=== PATIENT | female | born 1995 | race Caucasian/White ===

== ENCOUNTER → 2017-01-25 | Outpatient (CLI) | payer OTHER ==
[2016-11-06 08:30] VITALS: BP 110/64
[~2017-01-25] MED LIST: DOXY1TAB3 PO; HYDR25TA PO; NITR100C62 PO; PHOS118S17 PO; PRED50TA PO; PROM12.553 RC
[2017-01-25 11:05] LABS: EOS % 1 % (0-3); HEMATOCRIT 35.1 % (36.0-47.0); HEMOGLOBIN 12.1 g/dL (12.0-15.5); LYMPH % 16 % (24-48); MEAN CORPUSCULAR HEMOGLOBIN 35 pg (25-35); MEAN CORPUSCULAR HGB CONC 35 g/dL (31-37); MEAN CORPUSCULAR VOLUME 100 fL (79-100); MONO % 5 % (0-9); NEUT % 79 % (31-73); PLATELET COUNT 186 x10^3/uL (140-400); RED CELL DISTRIBUTION WIDTH 13.1 % (11.5-14.5); WHITE BLOOD COUNT 5.9 x10^3/uL (4.0-11.0)
[2017-01-25 11:06] LABS: BASO % 0 % (0-3)
== END | disposition home or self-care (01) ==
LOC: LAB 09:38
PROVIDERS: ATTEND Obstetrics & Gynecology
DX: Z32.01 Encounter for pregnancy test, result positive (principal)
CPT/HCPCS: 36415; 82950; 85027; 86593; 86703; 86762; 86850; 86900; 86901; 87340; 87341

== ENCOUNTER 2017-05-18 18:47 | Inpatient (IN) | payer OTHER ==
[~2017-05-18] VITALS: Ht 157.5 cm; Wt 81.6 kg
[2017-05-18] MEDS ORDERED: IBUPROFEN 600 MG TABLET. PO PRN (19:45)
[2017-05-18] MEDS ORDERED: fentaNYL PF VIAL 100 MCG/2 ML VIAL IV PRN (19:45)
[2017-05-18] MEDS ORDERED: OXYTOCIN 30 UNIT/500 ML PREMIX 500 ML IV PRN (19:45)
[2017-05-18] MEDS ORDERED: ACETAMINOPHEN 325 MG TABLET. PO PRN (19:45)
[2017-05-18] MEDS ORDERED: 0.9 % SODIUM CHLORIDE 10 ML DISP.SYRIN. IV PRN (19:45)
[2017-05-18] MEDS ORDERED: TERBUTALINE 1 MG/ML VIAL. SQ PRN (19:45)
[2017-05-18] MEDS ORDERED: DINOPROSTONE 10 MG SUPP.VAG VG ONE (19:45)
[2017-05-18] MEDS ORDERED: LIDOCAINE 1% PF 30 ML VIAL. INJ PRN (19:45)
[2017-05-18] MEDS ORDERED: diphenhydrAMINE HCL 25 MG CAPSULE PO PRN (19:45)
[2017-05-18 20:25] LABS: HEMATOCRIT 35.4 % (36.0-47.0); HEMOGLOBIN 12.4 g/dL (12.0-15.5); RED BLOOD COUNT 3.49 x10^6/uL (3.50-5.40); RED CELL DISTRIBUTION WIDTH 11.8 % (11.5-14.5); WHITE BLOOD COUNT 6.7 x10^3/uL (4.0-11.0)
[2017-05-18 20:27] LABS: BILIRUBIN,URINE NEGATIVE (NEG); GLUCOSE,URINE NEGATIVE (NEG); NITRITE,URINE NEGATIVE (NEG); PH,URINE 6.5; PROTEIN,URINE NEGATIVE (NEG-TRACE); UROBILINOGEN,URINE 0.2 mg/dL (0.2 mg/dL)
[2017-05-18 20:32] LABS: BACTERIA,URINE MODERATE /HPF (0-FEW); RBC,URINE 0 /HPF (0-2); SQUAMOUS EPITHELIAL CELL,UR MOD /LPF
[2017-05-18 23:43] VITALS: BP 124/83
[2017-05-19] MEDS: IV RINGERS,LACTATED 1000ML 1,000 ML IV SCH ×3 (08:58→20:44)
[2017-05-19] MEDS ORDERED: OXYTOCIN 30 UNIT/500 ML PREMIX 500 ML IV ONE (09:00)
--- NOTE | 2017-05-19 09:25 | PDOC1 ---
OB - History Hx of Present Care: Good Care Ultrasounds: Normal mid trimester US Obstetrical Complications: None Medical Complications: None Past Family/Social History * Past Medical, Surgical, Family and Obstetric Histories reviewed from chart. Rubella: Immune RPR/VDRL: Negative GBS Status: Negative HBsAG: Negative OB - Chief Complaint & HPI Date of Admission: Date of Admission: May 18, 2017 at 18:47 Chief Complaint/History : 1 Para: 0 EGA: 39 Reason for admission: induction of labor Indication for induction: post dates Admission Nurse Assessment Rev: Yes Problems: OB - Admission Exam Physical Exam Vitals: VS - Last 72 Hours, by Label Date Time Temp Pulse Resp B/P (MAP) Pulse Ox O2 Delivery O2 Flow Rate FiO2 05/18/17 23:43 98.6 82 18 124/83 (97) Room Air 98.6 HEENT: Normal Heart: Regular Rate Lungs: Clear Abdomen: Gravid, Non tender, Soft Extremities: Edema Reflexes: Normal Cervical Dilatation: 1cm Effacement: 50% Station: -3 Membranes: Intact Heart Rate: Normal Accelerations: Accelerations Present Decelerations: No decelerations Contractions on Admission: None Text A: 40 wks IUP IOL secondary to post dates P: Admit for cervidil induction, then pitocin in am. PAMELA FARRIS Jr, MD May 19, 2017 09:25
[2017-05-19] MEDS: ONDANSETRON PF 4 MG/2 ML VIAL. IV PRN ×2 (13:34→19:32)
[2017-05-19] MEDS ORDERED: LIDOCAINE 2% PF Vial for OR 5 ML VIAL. ONE (16:56)
[2017-05-19] MEDS ORDERED: L&D EPIDURAL CASSETTE 100 ML EP ONE (16:56)
[2017-05-19] MEDS ORDERED: LIDOCAINE 2% 20 ML VIAL. IJ ONE (17:30)
[2017-05-19] MEDS ORDERED: fentaNYL PF VIAL 100 MCG/2 ML VIAL EPI ONE (17:30)
[2017-05-19] MEDS ORDERED: IV RINGERS,LACTATED 1000ML 1,000 ML IV SCH (17:30)
[2017-05-19] MEDS ORDERED: NALOXONE 0.4 MG/ML VIAL. IV PRN (17:30)
[2017-05-19] MEDS ORDERED: L&D EPIDURAL CASSETTE 100 ML EP PRN (17:30)
[2017-05-19] MEDS ORDERED: fentaNYL PF VIAL 100 MCG/2 ML VIAL EPI PRN (17:30)
--- NOTE | 2017-05-20 00:24 | PDOC ---
VAGINAL DELIVERY DATE DATE: 05/20/17 TIME: 00:23 : 1 Para: 1 EGA: 40 VAGINAL DELIVERY: VTX VACCUM ASSISTED: No PLACENTA: Spontaneous 9/9 SEX: Male WEIGHT Weight [3200 gm ] Nuchal Cord: No Amniotic Fluid: Clear PAIN: Epidural EPISIOTOMY: No EXTENSION: Yes (2nd degree midline laceration) REPAIRED WITH 2-0 vicryl EBL 400 ml COMPLICATIONS none CONDITION pt. stable Signs of Intrauterine Infectio: None Shoulder Dystocia: No Problems: PAMELA FARRIS Jr, MD May 20, 2017 00:24
[2017-05-20] MEDS ORDERED: ZOLPIDEM 5 MG TABLET. PO PRN (00:30)
[2017-05-20] MEDS ORDERED: SIMETHICONE 80 MG TAB.CHEW PO PRN (00:30)
[2017-05-20] MEDS ORDERED: ACETAMINOPHEN 325 MG TABLET. PO PRN (00:30)
[2017-05-20] MEDS ORDERED: diphenhydrAMINE HCL 25 MG CAPSULE PO PRN (00:30)
[2017-05-20] MEDS ORDERED: MAGNESIUM HYDROXIDE 2,400 MG/30 ML ORAL.SUSP. PO PRN (00:30)
[2017-05-20] MEDS ORDERED: oxyCODONE/APAP 5/325 1 TAB TABLET PO PRN (00:30)
[2017-05-20] MEDS ORDERED: OXYTOCIN 30 UNIT/500 ML PREMIX 500 ML IV PRN (00:30)
[2017-05-20] MEDS ORDERED: HYDROCORTISONE 1% TOPICAL OINTMENT 30GM TUBE. TP PRN (00:30)
[2017-05-20] MEDS ORDERED: MAG HYDROX/ALUMINUM HYD/SIMETH 30 ML ORAL.SUSP PO PRN (00:30)
[2017-05-20] MEDS ORDERED: MMR per PROTOCOL. MC PRN (00:30)
[2017-05-20] MEDS ORDERED: PHENYLEPH/MINERAL OIL/PETROLAT RECTAL OINTMENT 28GM TUBE. RC PRN (00:30)
[2017-05-20] MEDS ORDERED: BENZOCAINE 20% TOPICAL AEROSOL SPRAY 57GM CAN. TP PRN (00:30)
[2017-05-20] MEDS ORDERED: 0.9 % SODIUM CHLORIDE 10 ML DISP.SYRIN. IV PRN (00:30)
[2017-05-20 02:42] VITALS: BP 123/61
[2017-05-20 10:42] VITALS: BP 131/89
[2017-05-20 17:19] VITALS: BP 113/49
[2017-05-20 21:08] VITALS: BP 120/69
[2017-05-20] MEDS: IBUPROFEN 800 MG TABLET. PO PRN (21:21)
[2017-05-20] MEDS: DOCUSATE SODIUM 100 MG CAPSULE. PO PRN (21:21)
[2017-05-21 05:46] VITALS: BP 124/77
[2017-05-21 05:50] LABS: BASO % 0 % (0-3); EOS % 1 % (0-3); HEMATOCRIT 24.8 % (36.0-47.0); HEMOGLOBIN 8.8 g/dL (12.0-15.5); LYMPH # 2.2 x10^3/uL (1.0-4.8); LYMPH % 27 % (24-48); MEAN CORPUSCULAR HEMOGLOBIN 36 pg (25-35); MEAN CORPUSCULAR HGB CONC 36 g/dL (31-37); MEAN CORPUSCULAR VOLUME 101 fL (79-100); MONO % 8 % (0-9); NEUT % 65 % (31-73); PLATELET COUNT 124 x10^3/uL (140-400); RED BLOOD COUNT 2.45 x10^6/uL (3.50-5.40); RED CELL DISTRIBUTION WIDTH 12.1 % (11.5-14.5); WHITE BLOOD COUNT 8.1 x10^3/uL (4.0-11.0)
[2017-05-21] MEDS: FERROUS SULFATE 325 MG TABLET. PO SCH ×2 (08:18→17:24)
[2017-05-21] MEDS: IBUPROFEN 800 MG TABLET. PO PRN ×2 (08:20→19:54)
[2017-05-21 11:03] VITALS: BP 108/56
[2017-05-21 15:00] VITALS: BP 117/66
--- NOTE | 2017-05-21 15:41 | PDOC ---
OB Progress Note Date of Service 05/21/17 Time of Evaluation 1540 Notes Pt. feeling well. Pain controlled. Lochia minimal. Breast feeding. Lab Laboratory Tests Test 05/21/17 05:36 White Blood Count 8.1 x10^3/uL (4.0-11.0) Red Blood Count 2.45 x10^6/uL (3.50-5.40) Hemoglobin 8.8 g/dL (12.0-15.5) Hematocrit 24.8 % (36.0-47.0) Mean Corpuscular Volume 101 fL (79-100) Mean Corpuscular Hemoglobin 36 pg (25-35) Mean Corpuscular Hemoglobin Concent 36 g/dL (31-37) Red Cell Distribution Width 12.1 % (11.5-14.5) Platelet Count 124 x10^3/uL (140-400) Neutrophils (%) (Auto) 65 % (31-73) Lymphocytes (%) (Auto) 27 % (24-48) Monocytes (%) (Auto) 8 % (0-9) Eosinophils (%) (Auto) 1 % (0-3) Basophils (%) (Auto) 0 % (0-3) Neutrophils # (Auto) 5.3 x10^3uL (1.8-7.7) Lymphocytes # (Auto) 2.2 x10^3/uL (1.0-4.8) Monocytes # (Auto) 0.6 x10^3/uL (0.0-1.1) Eosinophils # (Auto) 0.0 x10^3/uL (0.0-0.7) Basophils # (Auto) 0.0 x10^3/uL (0.0-0.2) Laboratory Tests Test 05/21/17 05:36 White Blood Count 8.1 x10^3/uL (4.0-11.0) Red Blood Count 2.45 x10^6/uL (3.50-5.40) Hemoglobin 8.8 g/dL (12.0-15.5) Hematocrit 24.8 % (36.0-47.0) Mean Corpuscular Volume 101 fL (79-100) Mean Corpuscular Hemoglobin 36 pg (25-35) Mean Corpuscular Hemoglobin Concent 36 g/dL (31-37) Red Cell Distribution Width 12.1 % (11.5-14.5) Platelet Count 124 x10^3/uL (140-400) Neutrophils (%) (Auto) 65 % (31-73) Lymphocytes (%) (Auto) 27 % (24-48) Monocytes (%) (Auto) 8 % (0-9) Eosinophils (%) (Auto) 1 % (0-3) Basophils (%) (Auto) 0 % (0-3) Neutrophils # (Auto) 5.3 x10^3uL (1.8-7.7) Lymphocytes # (Auto) 2.2 x10^3/uL (1.0-4.8) Monocytes # (Auto) 0.6 x10^3/uL (0.0-1.1) Eosinophils # (Auto) 0.0 x10^3/uL (0.0-0.7) Basophils # (Auto) 0.0 x10^3/uL (0.0-0.2) Medications Current Medications Sodium Chloride (Normal Saline Flush) 3 ml QSHIFT PRN IV AFTER MEDS AND BLOOD DRAWS; Start 05/18/17 at 19:45; Stop 05/20/17 at 07:35; Status DC Ringer's Solution 1,000 ml @ 125 mls/hr Q8H IV Last administered on 05/19/17 20:44; Start 05/18/17 at 19:42; Stop 05/20/17 at 07:35; Status DC Fentanyl Citrate (Fentanyl 2ml Vial) 100 mcg PRN Q10MIN PRN IV Labor pain Last administered on 05/19/17 15:28; Start 05/18/17 at 19:45; Stop 05/20/17 at 07:35 ; Status DC Acetaminophen (Tylenol) 650 mg PRN Q6HRS PRN PO MILD PAIN / TEMP Last administered on 05/20/17 17:20; Start 05/18/17 at 19:45 Ondansetron HCl (Zofran) 4 mg PRN Q4HRS PRN IV NAUSEA/VOMITING Last administered on 05/19/17 19:32; Start 05/18/17 at 19:45; Stop 05/20/17 at 07:35 ; Status DC Terbutaline Sulfate (Brethine) 0.25 mg 1X PRN PRN SQ SEE COMMENTS; Start at 19:45; Stop 05/19/17 at 19:44; Status DC Lidocaine HCl 30 ml 1X PRN PRN INJ SEE COMMENTS; Start 05/18/17 at 19:45; Stop 05/20/17 at 07:35; Status DC Oxytocin/Sodium Chloride 500 ml @ 0 mls/hr CONT PRN PRN IV Post delivery bleeding Last administered on 05/20/17 01:54; Start 05/18/17 at 19:45; Stop 05/20 at 07:35; Status DC Ibuprofen (Motrin) 600 mg PRN Q6HRS PRN PO PAIN Last administered on 05/20/17 01:54; Start 05/18/17 at 19:45 Dinoprostone (Cervidil) 10 mg 1X ONCE VG Last administered on 05/18/17 20:41 ; Start 05/18/17 at 19:45; Stop 05/18/17 at 19:51; Status DC Diphenhydramine HCl (Benadryl) 50 mg PRN QHS PRN PO INSOMNIA Last administered on 05/19/17 02:29; Start 05/18/17 at 19:45 Oxytocin/Sodium Chloride 500 ml @ 0 mls/hr 1X ONCE IV Last administered on 08:59; Start 05/19/17 at 09:00; Stop 05/20/17 at 07:35; Status DC Ropivacaine/ Fentanyl/NS 100 ml @ As Directed STK-MED ONCE EP ; Start 05/19/17 at 16:56; Stop 05/20/17 at 07:35; Status DC Lidocaine HCl (Lidocaine Pf 2% Vial) 5 ml STK-MED ONCE .ROUTE ; Start 05/19/17 at 16:56; Stop 05/20/17 at 07:35; Status DC Ringer's Solution 1,000 ml @ 1,000 mls/hr Q1H IV ; Start 05/19/17 at 17:30; Stop 05/19/17 at 18:29; Status DC Naloxone HCl (Narcan) 0.04 mg PRN Q1MIN PRN IV SEE COMMENTS; Start 05/19/17 at 17:30; Stop 05/20/17 at 07:35; Status DC Fentanyl Citrate (Fentanyl 2ml Vial) 100 mcg PRN 1X PRN EPI FOR ANESTHESIA; Start 05/19/17 at 17:30; Stop 05/20/17 at 07:35; Status DC Ropivacaine/ Fentanyl/NS 100 ml @ 12 mls/hr CONT PRN EP PAIN Last administered on 05/19/17 18:16; Start 05/19/17 at 17:30; Stop 05/20/17 at 07:35 ; Status DC Fentanyl Citrate (Fentanyl 2ml Vial) 100 mcg 1X ONCE EPI Last administered on 05/19/17 18:18; Start 05/19/17 at 17:30; Stop 05/20/17 at 07:35; Status DC Lidocaine HCl 2 ml 1X ONCE IJ ; Start 05/19/17 at 17:30; Stop 05/20/17 at 07:35 ; Status DC Sodium Chloride (Normal Saline Flush) 10 ml QSHIFT PRN IV AFTER MEDS AND BLOOD DRAWS; Start 05/20/17 at 00:30; Stop 05/20/17 at 07:35; Status DC Oxytocin/Sodium Chloride 500 ml @ 62.5 mls/hr CONT PRN IV SEE I/O RECORD; Start 05/20/17 at 00:30; Stop 05/20/17 at 07:35; Status DC Acetaminophen (Tylenol) 650 mg PRN Q6HRS PRN PO MILD PAIN / TEMP; Start at 00:30 Ibuprofen (Motrin) 800 mg PRN Q8HRS PRN PO INFLAMMATION/PAIN PREVENTION Last administered on 05/21/17 08:20; Start 05/20/17 at 00:30 Docusate Sodium (Colace) 100 mg PRN BID PRN PO CONSTIPATION Last administered on 05/20/17 21:21; Start 05/20/17 at 00:30 Magnesium Hydroxide (Milk Of Magnesia) 2,400 mg PRN DAILY PRN PO CONSTIPATION; Start 05/20/17 at 00:30 Al Hydroxide/Mg Hydroxide (Mylanta Plus Xs) 30 ml PRN Q4HRS PRN PO HEARTBURN / GAS; Start 05/20/17 at 00:30 Simethicone (Gas-X) 80 mg PRN AFTMEALHC PRN PO GAS / BLOATING; Start 05/20/17 at 00:30 Diphenhydramine HCl (Benadryl) 25 mg PRN Q6HRS PRN PO ITCHING; Start 05/20/17 at 00:30 Benzocaine (Americaine) 1 spray PRN QID PRN TP TOPICAL PAIN Last administered on 05/20/17 01:54; Start 05/20/17 at 00:30 Phenyleph/Shark Oil/Min Oil/Petrol (Preparation H) 1 zahraa PRN QID PRN RC RECTAL PAIN; Start 05/20/17 at 00:30 Hydrocortisone (Cortaid) 1 zahraa PRN QID PRN TP PERINEAL PAIN; Start 05/20/17 at 00:30 Ferrous Sulfate (Feosol) 325 mg BIDWMEALS PO Last administered on 05/21/17 08: 18; Start 05/21/17 at 08:00 Zolpidem Tartrate (Ambien) 5 mg PRN QHS PRN PO INSOMNIA, MAY REPEAT X1; Start 05/20/17 at 00:30 Info (Do NOT chart on this placeholder) 1 ea 1X PRN PRN MC SEE COMMENTS; Start 05/20/17 at 00:30; Stop 05/20/17 at 07:35; Status DC Info (Do NOT chart on this placeholder) 1 ea 1X PRN PRN MC SEE COMMENTS; Start 05/20/17 at 00:30; Stop 05/20/17 at 07:35; Status DC Oxycodone/ Acetaminophen (Percocet 5/325) 2 tab PRN Q4HRS PRN PO MODERATE PAIN , SEVERE PAIN; Start 05/20/17 at 00:30 Active Scripts Active Phenergan (Promethazine HCl) 12.5 Mg Supp.rect 12.5 Mg RC Q12HR PRN Karyn Carpenter 10-10 Mg Tablet (Doxylamine/Pyridoxine Hcl) 1 Each Tablet.dr 1 Each PO BID PRN Macrobid 100 Mg Capsule (Nitrofurantoin Monohyd/M-Cryst) 100 Mg Capsule 1 Cap PO BID Emetrol Oral Solution (Phosp Acid/Dextrose/Fructose) 118 Ml Solution 30 Ml PO QID PRN 5 Days Prednisone 50 Mg Tablet 1 Tab PO DAILY Hydroxyzine Hcl 25 Mg Tablet 1 Tab PO TID Exam Abd: soft, non tender, fundus firm Assessment PPD#1 s/p Plan of Care: Continue current Tx, Mgmt PAMELA FARRIS Jr, MD May 21, 2017 15:41
[2017-05-21 20:40] VITALS: BP 129/75
[2017-05-21 22:11] LABS: RPR REFLEX Non Reactive (Non Reactive)
[2017-05-22 06:28] VITALS: BP 111/61
--- NOTE | 2017-05-22 10:02 | PDOC ---
OB Progress Note Date of Service 05/22/17 Time of Evaluation 1000 Notes PT. feeling well. No complaints. Lab Laboratory Tests Test 05/21/17 05:36 White Blood Count 8.1 x10^3/uL (4.0-11.0) Red Blood Count 2.45 x10^6/uL (3.50-5.40) Hemoglobin 8.8 g/dL (12.0-15.5) Hematocrit 24.8 % (36.0-47.0) Mean Corpuscular Volume 101 fL (79-100) Mean Corpuscular Hemoglobin 36 pg (25-35) Mean Corpuscular Hemoglobin Concent 36 g/dL (31-37) Red Cell Distribution Width 12.1 % (11.5-14.5) Platelet Count 124 x10^3/uL (140-400) Neutrophils (%) (Auto) 65 % (31-73) Lymphocytes (%) (Auto) 27 % (24-48) Monocytes (%) (Auto) 8 % (0-9) Eosinophils (%) (Auto) 1 % (0-3) Basophils (%) (Auto) 0 % (0-3) Neutrophils # (Auto) 5.3 x10^3uL (1.8-7.7) Lymphocytes # (Auto) 2.2 x10^3/uL (1.0-4.8) Monocytes # (Auto) 0.6 x10^3/uL (0.0-1.1) Eosinophils # (Auto) 0.0 x10^3/uL (0.0-0.7) Basophils # (Auto) 0.0 x10^3/uL (0.0-0.2) Medications Current Medications Sodium Chloride (Normal Saline Flush) 3 ml QSHIFT PRN IV AFTER MEDS AND BLOOD DRAWS; Start 05/18/17 at 19:45; Stop 05/20/17 at 07:35; Status DC Ringer's Solution 1,000 ml @ 125 mls/hr Q8H IV Last administered on 05/19/17 20:44; Start 05/18/17 at 19:42; Stop 05/20/17 at 07:35; Status DC Fentanyl Citrate (Fentanyl 2ml Vial) 100 mcg PRN Q10MIN PRN IV Labor pain Last administered on 05/19/17 15:28; Start 05/18/17 at 19:45; Stop 05/20/17 at 07:35 ; Status DC Acetaminophen (Tylenol) 650 mg PRN Q6HRS PRN PO MILD PAIN / TEMP Last administered on 05/20/17 17:20; Start 05/18/17 at 19:45 Ondansetron HCl (Zofran) 4 mg PRN Q4HRS PRN IV NAUSEA/VOMITING Last administered on 05/19/17 19:32; Start 05/18/17 at 19:45; Stop 05/20/17 at 07:35 ; Status DC Terbutaline Sulfate (Brethine) 0.25 mg 1X PRN PRN SQ SEE COMMENTS; Start at 19:45; Stop 05/19/17 at 19:44; Status DC Lidocaine HCl 30 ml 1X PRN PRN INJ SEE COMMENTS; Start 05/18/17 at 19:45; Stop 05/20/17 at 07:35; Status DC Oxytocin/Sodium Chloride 500 ml @ 0 mls/hr CONT PRN PRN IV Post delivery bleeding Last administered on 05/20/17 01:54; Start 05/18/17 at 19:45; Stop 05/20 at 07:35; Status DC Ibuprofen (Motrin) 600 mg PRN Q6HRS PRN PO PAIN Last administered on 05/20/17 01:54; Start 05/18/17 at 19:45 Dinoprostone (Cervidil) 10 mg 1X ONCE VG Last administered on 05/18/17 20:41 ; Start 05/18/17 at 19:45; Stop 05/18/17 at 19:51; Status DC Diphenhydramine HCl (Benadryl) 50 mg PRN QHS PRN PO INSOMNIA Last administered on 05/19/17 02:29; Start 05/18/17 at 19:45 Oxytocin/Sodium Chloride 500 ml @ 0 mls/hr 1X ONCE IV Last administered on 08:59; Start 05/19/17 at 09:00; Stop 05/20/17 at 07:35; Status DC Ropivacaine/ Fentanyl/NS 100 ml @ As Directed STK-MED ONCE EP ; Start 05/19/17 at 16:56; Stop 05/20/17 at 07:35; Status DC Lidocaine HCl (Lidocaine Pf 2% Vial) 5 ml STK-MED ONCE .ROUTE ; Start 05/19/17 at 16:56; Stop 05/20/17 at 07:35; Status DC Ringer's Solution 1,000 ml @ 1,000 mls/hr Q1H IV ; Start 05/19/17 at 17:30; Stop 05/19/17 at 18:29; Status DC Naloxone HCl (Narcan) 0.04 mg PRN Q1MIN PRN IV SEE COMMENTS; Start 05/19/17 at 17:30; Stop 05/20/17 at 07:35; Status DC Fentanyl Citrate (Fentanyl 2ml Vial) 100 mcg PRN 1X PRN EPI FOR ANESTHESIA; Start 05/19/17 at 17:30; Stop 05/20/17 at 07:35; Status DC Ropivacaine/ Fentanyl/NS 100 ml @ 12 mls/hr CONT PRN EP PAIN Last administered on 05/19/17 18:16; Start 05/19/17 at 17:30; Stop 05/20/17 at 07:35 ; Status DC Fentanyl Citrate (Fentanyl 2ml Vial) 100 mcg 1X ONCE EPI Last administered on 05/19/17 18:18; Start 05/19/17 at 17:30; Stop 05/20/17 at 07:35; Status DC Lidocaine HCl 2 ml 1X ONCE IJ ; Start 05/19/17 at 17:30; Stop 05/20/17 at 07:35 ; Status DC Sodium Chloride (Normal Saline Flush) 10 ml QSHIFT PRN IV AFTER MEDS AND BLOOD DRAWS; Start 05/20/17 at 00:30; Stop 05/20/17 at 07:35; Status DC Oxytocin/Sodium Chloride 500 ml @ 62.5 mls/hr CONT PRN IV SEE I/O RECORD; Start 05/20/17 at 00:30; Stop 05/20/17 at 07:35; Status DC Acetaminophen (Tylenol) 650 mg PRN Q6HRS PRN PO MILD PAIN / TEMP; Start at 00:30 Ibuprofen (Motrin) 800 mg PRN Q8HRS PRN PO INFLAMMATION/PAIN PREVENTION Last administered on 05/21/17 19:54; Start 05/20/17 at 00:30 Docusate Sodium (Colace) 100 mg PRN BID PRN PO CONSTIPATION Last administered on 05/20/17 21:21; Start 05/20/17 at 00:30 Magnesium Hydroxide (Milk Of Magnesia) 2,400 mg PRN DAILY PRN PO CONSTIPATION; Start 05/20/17 at 00:30 Al Hydroxide/Mg Hydroxide (Mylanta Plus Xs) 30 ml PRN Q4HRS PRN PO HEARTBURN / GAS; Start 05/20/17 at 00:30 Simethicone (Gas-X) 80 mg PRN AFTMEALHC PRN PO GAS / BLOATING; Start 05/20/17 at 00:30 Diphenhydramine HCl (Benadryl) 25 mg PRN Q6HRS PRN PO ITCHING; Start 05/20/17 at 00:30 Benzocaine (Americaine) 1 spray PRN QID PRN TP TOPICAL PAIN Last administered on 05/20/17 01:54; Start 05/20/17 at 00:30 Phenyleph/Shark Oil/Min Oil/Petrol (Preparation H) 1 zahraa PRN QID PRN RC RECTAL PAIN; Start 05/20/17 at 00:30 Hydrocortisone (Cortaid) 1 zahraa PRN QID PRN TP PERINEAL PAIN; Start 05/20/17 at 00:30 Ferrous Sulfate (Feosol) 325 mg BIDWMEALS PO Last administered on 05/21/17 17: 24; Start 05/21/17 at 08:00 Zolpidem Tartrate (Ambien) 5 mg PRN QHS PRN PO INSOMNIA, MAY REPEAT X1; Start 05/20/17 at 00:30 Info (Do NOT chart on this placeholder) 1 ea 1X PRN PRN MC SEE COMMENTS; Start 05/20/17 at 00:30; Stop 05/20/17 at 07:35; Status DC Info (Do NOT chart on this placeholder) 1 ea 1X PRN PRN MC SEE COMMENTS; Start 05/20/17 at 00:30; Stop 05/20/17 at 07:35; Status DC Oxycodone/ Acetaminophen (Percocet 5/325) 2 tab PRN Q4HRS PRN PO MODERATE PAIN , SEVERE PAIN; Start 05/20/17 at 00:30 Active Scripts Active Phenergan (Promethazine HCl) 12.5 Mg Supp.rect 12.5 Mg RC Q12HR PRN Karyn Carpenter 10-10 Mg Tablet (Doxylamine/Pyridoxine Hcl) 1 Each Tablet.dr 1 Each PO BID PRN Macrobid 100 Mg Capsule (Nitrofurantoin Monohyd/M-Cryst) 100 Mg Capsule 1 Cap PO BID Emetrol Oral Solution (Phosp Acid/Dextrose/Fructose) 118 Ml Solution 30 Ml PO QID PRN 5 Days Prednisone 50 Mg Tablet 1 Tab PO DAILY Hydroxyzine Hcl 25 Mg Tablet 1 Tab PO TID Exam Abd: soft, non tender, fundus firm Assessment PPD#2 s/p Plan of Care: See new orders (D/c home.) PAMELA FARRIS Jr, MD May 22, 2017 10:02
--- NOTE | 2017-05-22 10:02 | DISCH ---
DISCHARGE INSTRUCTIONS Condition on Discharge Condition on Discharge: Stable Activity After Discharge Activity Instructions for Disc: Activity as tolerated Lifting Instructions after Dis: No heavy lifting Driving Instructions after Dis: Do not drive today Diet after Discharge Diet after Discharge: Regular Contacting the [facility] after DC Call your doctor for: Concerns you may have Follow-Up Follow up with: Dr. Miles in 6 weeks. PAMELA MILES Jr, MD May 22, 2017 10:02
[2017-05-22] MEDS ORDERED: IBUP-1060 PO (10:03)
[2017-05-22] MEDS: FERROUS SULFATE 325 MG TABLET. PO SCH (10:16)
[2017-05-22] MEDS: DOCUSATE SODIUM 100 MG CAPSULE. PO PRN (10:17)
[2017-05-22] MEDS: IBUPROFEN 800 MG TABLET. PO PRN (10:17)
== END 2017-05-22 12:00 | disposition home or self-care (01) | DRG 775 ==
LOC: 3 SO LND 18:47 → 3 NORTH 05-20 05:26
PROVIDERS: ADMIT Obstetrics & Gynecology; ATTEND Obstetrics & Gynecology
PROC: 0KQM0ZZ Repair Perineum Muscle, Open Approach (ICD-10-PCS; principal; 2017-05-20)
PROC: 10E0XZZ Delivery of Products of Conception, External Approach (ICD-10-PCS; 2017-05-20)
PROC: 3E0P7GC Introduction of Other Therapeutic Substance into Female Reproductive, Via Natural or Artificial Opening (ICD-10-PCS; 2017-05-20)
PROC: 3E033VJ Introduction of Other Hormone into Peripheral Vein, Percutaneous Approach (ICD-10-PCS; 2017-05-20)
PROC: 3E0S3CZ (ICD-10-PCS; 2017-05-20)
PROC: 00HU33Z Insertion of Infusion Device into Spinal Canal, Percutaneous Approach (ICD-10-PCS; 2017-05-20)
DX: O48.0 Post-term pregnancy (principal); O70.1 Second degree perineal laceration during delivery; Z37.0 Single live birth; Z3A.40 40 weeks gestation of pregnancy
CPT/HCPCS: 36415; 81001; 85027; 86593; 86850; 86900; 86901; 87086; J2405; J2590; J3010; J7120; Q0163

== ENCOUNTER → 2018-09-20 | Outpatient (CLI) | payer OTHER ==
[~2018-09-20] MED LIST changes: +IBUP-1060 PO
[2018-09-20 16:10] LABS: BASO % 0 % (0-3); EOS # 0.1 x10^3/uL (0.0-0.7); EOS % 1 % (0-3); HEMATOCRIT 36.1 % (36.0-47.0); HEMOGLOBIN 12.8 g/dL (12.0-15.5); LYMPH # 1.3 x10^3/uL (1.0-4.8); LYMPH % 26 % (24-48); MEAN CORPUSCULAR HEMOGLOBIN 34 pg (25-35); MEAN CORPUSCULAR HGB CONC 35 g/dL (31-37); MEAN CORPUSCULAR VOLUME 95 fL (79-100); MONO # 0.5 x10^3/uL (0.0-1.1); MONO % 9 % (0-9); NEUT # 3.4 x10^3uL (1.8-7.7); NEUT % 64 % (31-73); PLATELET COUNT 211 x10^3/uL (140-400); RED BLOOD COUNT 3.79 x10^6/uL (3.50-5.40); RED CELL DISTRIBUTION WIDTH 11.7 % (11.5-14.5); WHITE BLOOD COUNT 5.2 x10^3/uL (4.0-11.0)
== END | disposition home or self-care (01) ==
LOC: LAB 15:39
PROVIDERS: ATTEND Obstetrics & Gynecology
DX: Z32.01 Encounter for pregnancy test, result positive (principal)
CPT/HCPCS: 36415; 85025; 86592; 86703; 86706; 86762; 86850; 86900; 86901; 87340

== ENCOUNTER 2018-09-24 18:15 | Emergency (ER) | payer OTHER ==
[~2018-09-24] VITALS: Ht 167.6 cm; Wt 64.4 kg
[2018-09-24 19:41] LABS: BASO % 0 % (0-3); EOS % 1 % (0-3); HEMATOCRIT 34.8 % (36.0-47.0); HEMOGLOBIN 12.4 g/dL (12.0-15.5); LYMPH # 1.6 x10^3/uL (1.0-4.8); LYMPH % 31 % (24-48); MEAN CORPUSCULAR HEMOGLOBIN 34 pg (25-35); MEAN CORPUSCULAR HGB CONC 36 g/dL (31-37); MEAN CORPUSCULAR VOLUME 96 fL (79-100); MONO # 0.4 x10^3/uL (0.0-1.1); MONO % 8 % (0-9); NEUT # 3.2 x10^3uL (1.8-7.7); NEUT % 59 % (31-73); PLATELET COUNT 214 x10^3/uL (140-400); RED BLOOD COUNT 3.64 x10^6/uL (3.50-5.40); WHITE BLOOD COUNT 5.3 x10^3/uL (4.0-11.0)
[2018-09-24 19:45] LABS: BILIRUBIN,URINE NEGATIVE (NEG); CLARITY,URINE CLEAR; COLOR,URINE YELLOW; NITRITE,URINE NEGATIVE (NEG); PH,URINE 6.5; PROTEIN,URINE NEGATIVE (NEG-TRACE)
[2018-09-24 19:55] LABS: BACTERIA,URINE FEW /HPF (0-FEW); RBC,URINE 0 /HPF (0-2); SQUAMOUS EPITHELIAL CELL,UR FEW /LPF; WBC,URINE OCC /HPF (0-4)
[2018-09-24 19:55] LABS: CALCIUM 8.8 mg/dL (8.5-10.1); CREATININE 0.7 mg/dL (0.6-1.0); GFR 102.8; POTASSIUM 3.6 mmol/L (3.5-5.1)
--- NOTE | 2018-09-24 20:52 | PHYS DOC ---
Past Medical History Past Medical History: No Pertinent History Past Surgical History: No Surgical History Additional Past Surgical Histo: wisdom teeth Alcohol Use: None Drug Use: None Adult General Chief Complaint Chief Complaint: ABDOMINAL PAIN IN HPI HPI Patient is a 23 year old due to, P1 estimated age 10 week gestation female who presents with bilateral pelvic pain, cramping light vaginal discharge and spotting after intercourse starting one day ago. Pain is currently described as mild. It is worse remaining still but is improved by walking and movement. Reports nausea from morning sickness but denies change nausea vomiting. No flank pain, urinary frequency dysuria or hematuria. No history of kidney stones. No other acute symptoms or complaints. No prior abdominal or gynecological surgeries. Patient was evaluated by her [employer] OF [employer], Dr. Villalpando last week. She was estimated to be 8-10 weeks based upon physical exam. She has not had a formal ultrasound.[] Review of Systems Review of Systems Review of symptoms as per history of present illness. All other review symptoms are negative. All other systems were reviewed and found to be within normal limits, except as documented in this note. Allergies Allergies Allergies Coded Allergies Type Severity Reaction Last Updated Verified No Known Drug Allergies 07/21/16 No Physical Exam Physical Exam Constitutional: Well developed, well nourished, no acute distress, non-toxic appearance. [] HENT: Normocephalic, atraumatic, bilateral external ears normal, oropharynx moist, , nose normal. [] Eyes: PERRLA, EOMI, conjunctiva normal, no discharge. [] Neck: Normal range of motion, no tenderness, supple, no stridor. [] Cardiovascular:Heart rate regular rhythm, no murmur. [] Lungs & Thorax: Bilateral breath sounds clear to auscultation [] Abdomen: Bowel sounds normal, soft, no tenderness, rebound rigidity or guarding , negative McBurney's. Right pelvic cramping, no palpable hernias.[] Skin: Warm, dry, no erythema, no rash. [] Back: No tenderness. [] Extremities: No tenderness, no cyanosis, no clubbing, ROM intact, no edema. [] Psychologic: Affect normal, judgement normal, mood normal. [] Current Patient Data Vital Signs Vital Signs Date Time Temp Pulse Resp B/P (MAP) Pulse Ox O2 Delivery O2 Flow Rate FiO2 11/5/18 19:17 98.5 90 16 146/68 (94) 98 Room Air 98.5 Lab Values Laboratory Tests Test 09/24/18 19:10 09/24/18 19:30 09/24/18 20:17 Urine Collection Type Unknown Urine Color Yellow Urine Clarity Clear Urine pH 6.5 Urine Specific [place] >=1.030 Urine Protein Negative mg/dL (NEG-TRACE) Urine Glucose (UA) Negative mg/dL (NEG) Urine Ketones (Stick) Negative mg/dL (NEG) Urine Blood Negative (NEG) Urine Nitrite Negative (NEG) Urine Bilirubin Negative (NEG) Urine Urobilinogen Dipstick 1.0 mg/dL (0.2 mg/dL) Urine Leukocyte Esterase Negative (NEG) Urine RBC 0 /HPF (0-2) Urine WBC Occ /HPF (0-4) Urine Squamous Epithelial Cells Few /LPF Urine Bacteria Few /HPF (0-FEW) Urine Mucus Mod /LPF White Blood Count 5.3 x10^3/uL (4.0-11.0) Red Blood Count 3.64 x10^6/uL (3.50-5.40) Hemoglobin 12.4 g/dL (12.0-15.5) Hematocrit 34.8 % (36.0-47.0) L Mean Corpuscular Volume 96 fL (79-100) Mean Corpuscular Hemoglobin 34 pg (25-35) Mean Corpuscular Hemoglobin Concent 36 g/dL (31-37) Red Cell Distribution Width 12.0 % (11.5-14.5) Platelet Count 214 x10^3/uL (140-400) Neutrophils (%) (Auto) 59 % (31-73) Lymphocytes (%) (Auto) 31 % (24-48) Monocytes (%) (Auto) 8 % (0-9) Eosinophils (%) (Auto) 1 % (0-3) Basophils (%) (Auto) 0 % (0-3) Neutrophils # (Auto) 3.2 x10^3uL (1.8-7.7) Lymphocytes # (Auto) 1.6 x10^3/uL (1.0-4.8) Monocytes # (Auto) 0.4 x10^3/uL (0.0-1.1) Eosinophils # (Auto) 0.0 x10^3/uL (0.0-0.7) Basophils # (Auto) 0.0 x10^3/uL (0.0-0.2) Maternal Serum HCG Beta Subunit 2208 mIU/mL (0-5) H Sodium Level 139 mmol/L (136-145) Potassium Level 3.6 mmol/L (3.5-5.1) Chloride Level 103 mmol/L (98-107) Carbon Dioxide Level 27 mmol/L (21-32) Anion Gap 9 (6-14) Blood Urea Nitrogen 20 mg/dL (7-20) Creatinine 0.7 mg/dL (0.6-1.0) Estimated GFR (Cockcroft-Gault) 102.8 Glucose Level 94 mg/dL (70-99) Calcium Level 8.8 mg/dL (8.5-10.1) POC Urine HCG, Qualitative Hcg positive (Negative) Laboratory Tests 09/24/18 19:30 Laboratory Tests 09/24/18 19:30 EKG EKG [] Radiology/Procedures Radiology/Procedures [OB Ultrasound: no evidence of ectopic per radiology report] Course & Med Decision Making Course & Med Decision Making Pertinent Labs and Imaging studies reviewed. (See chart for details) [Nonspecific pelvic pain in early with concern for possible ectopic versus appendicitis versus kidney stone, versus ovarian torsion versus corpus luteal cyst. Ultrasound, intrauterine dizziness is noted to be present. Symptoms are mild and would be atypical for appendicitis, kidney stone her torsion. No additional workup indicated at this time. Recommend watchful waiting, close [employer] follow-up and to return to the emergency department tomorrow should symptoms progress or change. Otherwise, patient is to follow-up with your [employer] for repeat hCG Quant testing. With the patient the potential of appendicitis, kidney stone potential miscarriage and signs and symptoms associated with diagnosis.. Patient verbalizes understanding agreement with discharge instructions prior to departure.] Dragon Disclaimer Dragon Disclaimer This electronic medical record was generated, in whole or in part, using a voice recognition dictation system. Departure Departure Impression: Primary Impression: Pelvic pain affecting in first trimester, antepartum Disposition: 01 HOME, SELF-CARE Condition: GOOD Referrals: MAURIZIO SUTHERLAND MD (PCP) Patient Instructions: Pelvic Pain, Female, [id number] Additional Instructions: You were evaluated in the emergency department for pelvic pain. Lab work and ultrasound were performed and are nondiagnostic. Symptoms could represent normal , early miscarriage, early appendicitis, corpus luteal cyst pain , or other unknown diagnosis. Please take Tylenol as needed for pain and avoid strenuous physical activity. Follow-up with your [employer]OR [employer] in 48 hours for repeat hCG Quant testing. In the meantime, if her pain worsens or he develop any other new or concerning symptoms, please return to the emergency department. FELICIA AKERS DO Sep 24, 2018 20:52
--- NOTE | 2018-09-24 20:57 | RAD ---
EXAM: Obstetrics sonogram. HISTORY: Right lower quadrant pain. Spotting. TECHNIQUE: Sonographic imaging of a gravid uterus was performed. COMPARISON: None. FINDINGS: There is a single intrauterine gestational sac with a mean sac diameter is 0.79 cm, corresponding with a gestational age of 5 weeks and 4 days. No pole is seen. The uterus is retroverted and measures 7.7 x 5.2 x 4.4 cm. The ovaries are normal in size and demonstrate normal blood flow. There is a 1.9 cm complex right ovarian cyst, likely corpus luteum cyst. No subchorionic hematoma is seen. The gestational sac appears normal in configuration. IMPRESSION: 1. Single intrauterine gestational sac with a mean sac diameter corresponding with a gestational age of 5 weeks and 4 days. A pole is not seen at this early gestation. Follow-up in one to 2 weeks can be performed to confirm viability if clinically indicated. 2. 1.5 cm complex right ovarian cyst, likely a corpus luteum cyst. Electronically signed by: Huong Quezada MD (09/24/2018 8:53 PM) [facility]
[2018-09-24 21:10] VITALS: BP 128/68
== END 2018-09-24 21:11 | disposition home or self-care (01) ==
LOC: ER 18:15
DX: O26.891 Other specified pregnancy related conditions, first trimester (principal); R10.2 Pelvic and perineal pain; Z3A.10 10 weeks gestation of pregnancy
CPT/HCPCS: 36415; 76801; 80048; 81001; 81025; 84702; 85025; 99285-25

== ENCOUNTER → 2018-09-26 | Outpatient (CLI) | payer OTHER ==
[2018-09-24 21:10] VITALS: BP 128/68
== END | disposition home or self-care (01) ==
LOC: LAB 12:48
PROVIDERS: ATTEND Obstetrics & Gynecology
DX: Z34.81 Encounter for supervision of other normal pregnancy, first trimester (principal); Z3A.01 Less than 8 weeks gestation of pregnancy
CPT/HCPCS: 36415; 84702

== ENCOUNTER 2018-11-23 08:57 | Emergency (ER) | payer OTHER ==
[~2018-11-23] VITALS: Ht 160 cm; Wt 70.3 kg
--- NOTE | 2018-11-23 09:13 | PHYS DOC ---
Past Medical History Past Medical History: No Pertinent History Past Surgical History: No Surgical History Additional Past Surgical Histo: wisdom teeth Alcohol Use: None Drug Use: None Adult General Chief Complaint Chief Complaint: NEAR SYNCOPE HPI HPI Patient is a 23 year old presented to ER today for evaluation of sore throat, fever or chill, feeling dizzy off and on for several days. 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 Patient denies any cough, no headache, no abdominal pain, no nausea vomiting. Review of Systems Review of Systems Constitutional: Positvie for fever or chills [] Eyes: Denies change in visual acuity, redness, or eye pain [] HENT: Positive for nasal congestion , sore throat [] Respiratory: Denies cough or shortness of breath [] Cardiovascular: No additional information not addressed in HPI [] GI: Denies abdominal pain, nausea, vomiting, bloody stools or diarrhea [] : Denies dysuria or hematuria [] Musculoskeletal: Denies back pain or joint pain [] Integument: Denies rash or skin lesions [] Neurologic: Positive for headache and dizziness, no focal weakness or sensory changes [] Endocrine: Denies polyuria or polydipsia [] All other systems were reviewed and found to be within normal limits, except as documented in this note. Current Medications Current Medications Current Medications Medications (Trade) Dose Ordered Sig/Mich Start Time Stop Time Status Last Admin Dose Admin Acetaminophen (Tylenol) 1,000 mg 1X ONCE 11/23/18 09:15 11/23/18 09:16 DC Ampicillin Sodium/ Sulbactam Sodium 3 gm/Sodium Chloride 100 ml @ 200 mls/hr 1X ONCE 11/23/18 09:15 11/23/18 09:44 DC 11/23/18 09:50 200 MLS/HR Ketorolac Tromethamine (Toradol 30mg Vial) 30 mg 1X ONCE 11/23/18 09:30 11/23/18 09:31 DC 11/23/18 09:36 30 MG Methylprednisolone Sodium Succinate (SOLU-Medrol 125MG VIAL) 125 mg 1X ONCE 11/23/18 09:15 11/23/18 09:19 DC 11/23/18 09:36 125 MG Sodium Chloride 1,000 ml @ 1,000 mls/hr 1X ONCE 11/23/18 09:15 11/23/18 10:14 DC 11/23/18 09:36 1,000 MLS/HR Allergies Allergies Allergies Coded Allergies Type Severity Reaction Last Updated Verified No Known Drug Allergies 07/21/16 No Physical Exam Physical Exam Constitutional: Well developed, well nourished, no acute distress, non-toxic appearance. [] HENT: Normocephalic, atraumatic, bilateral external ears normal, oropharynx moist, Bilateral tonsillar exudates, swelling and erythema, uvula is midline, nose with clear discharge. Eyes: PERRLA, EOMI, conjunctiva normal, no discharge. [] Neck: Normal range of motion, no tenderness, supple, no stridor. [] Cardiovascular:Heart rate regular rhythm, no murmur [] Lungs & Thorax: Bilateral breath sounds clear to auscultation [] Abdomen: Bowel sounds normal, soft, no tenderness, no masses, no pulsatile masses. [] Skin: Warm, dry, no erythema, no rash. [] Back: No tenderness, no CVA tenderness. [] Extremities: No tenderness, no cyanosis, no clubbing, ROM intact, no edema. [] Neurologic: Alert and oriented X 3, normal motor function, normal sensory function, no focal deficits noted. [] Psychologic: Affect normal, judgement normal, mood normal. [] Current Patient Data Vital Signs Vital Signs Date Time Temp Pulse Resp B/P (MAP) Pulse Ox O2 Delivery O2 Flow Rate FiO2 11/23/18 09:10 99.1 119 20 145/74 (97) 99 Room Air 99.1 Lab Values Laboratory Tests Test 11/23/18 09:00 11/23/18 09:05 11/23/18 09:25 Urine Collection Type Unknown Urine Color Yellow Urine Clarity Clear Urine pH 6.0 Urine Specific [place] 1.025 Urine Protein 30 mg/dL (NEG-TRACE) Urine Glucose (UA) Negative mg/dL (NEG) Urine Ketones (Stick) Trace mg/dL (NEG) Urine Blood Negative (NEG) Urine Nitrite Negative (NEG) Urine Bilirubin Small (NEG) Urine Urobilinogen Dipstick 1.0 mg/dL (0.2 mg/dL) Urine Leukocyte Esterase Small (NEG) Urine RBC Occ /HPF (0-2) Urine WBC 1-4 /HPF (0-4) Urine Squamous Epithelial Cells Many /LPF Urine Bacteria Many /HPF (0-FEW) Urine Mucus Marked /LPF POC Urine HCG, Qualitative Hcg negative (Negative) White Blood Count 5.6 x10^3/uL (4.0-11.0) Red Blood Count 3.98 x10^6/uL (3.50-5.40) Hemoglobin 13.2 g/dL (12.0-15.5) Hematocrit 38.1 % (36.0-47.0) Mean Corpuscular Volume 96 fL (79-100) Mean Corpuscular Hemoglobin 33 pg (25-35) Mean Corpuscular Hemoglobin Concent 35 g/dL (31-37) Red Cell Distribution Width 11.9 % (11.5-14.5) Platelet Count 177 x10^3/uL (140-400) Neutrophils (%) (Auto) 77 % (31-73) H Lymphocytes (%) (Auto) 15 % (24-48) L Monocytes (%) (Auto) 8 % (0-9) Eosinophils (%) (Auto) 0 % (0-3) Basophils (%) (Auto) 0 % (0-3) Neutrophils # (Auto) 4.3 x10^3uL (1.8-7.7) Lymphocytes # (Auto) 0.8 x10^3/uL (1.0-4.8) L Monocytes # (Auto) 0.4 x10^3/uL (0.0-1.1) Eosinophils # (Auto) 0.0 x10^3/uL (0.0-0.7) Basophils # (Auto) 0.0 x10^3/uL (0.0-0.2) Sodium Level 139 mmol/L (136-145) Potassium Level 3.7 mmol/L (3.5-5.1) Chloride Level 100 mmol/L (98-107) Carbon Dioxide Level 29 mmol/L (21-32) Anion Gap 10 (6-14) Blood Urea Nitrogen 11 mg/dL (7-20) Creatinine 0.7 mg/dL (0.6-1.0) Estimated GFR (Cockcroft-Gault) 102.8 BUN/Creatinine Ratio 16 (6-20) Glucose Level 95 mg/dL (70-99) Calcium Level 8.8 mg/dL (8.5-10.1) Total Bilirubin 0.3 mg/dL (0.2-1.0) Aspartate Amino Transferase (AST) 18 U/L (15-37) Alanine Aminotransferase (ALT) 21 U/L (14-59) Alkaline Phosphatase 59 U/L (46-116) Total Protein 7.9 g/dL (6.4-8.2) Albumin 3.7 g/dL (3.4-5.0) Albumin/Globulin Ratio 0.9 (1.0-1.7) L Laboratory Tests 11/23/18 09:25 Laboratory Tests 11/23/18 09:25 EKG EKG [] Radiology/Procedures Radiology/Procedures [] Course & Med Decision Making Course & Med Decision Making Pertinent Labs and Imaging studies reviewed. (See chart for details) [] Dragon Disclaimer Dragon Disclaimer This electronic medical record was generated, in whole or in part, using a voice recognition dictation system. Departure Departure Impression: Primary Impression: Acute pharyngitis Disposition: 01 HOME, SELF-CARE Condition: STABLE Referrals: MAURIZIO SUTHERLAND MD (PCP) follow up with your pcp as needed if you don't get better in 2 days Patient Instructions: Viral and Bacterial Pharyngitis Scripts Amoxicillin (AMOXICILLIN) 500 Mg Capsule 1 CAP PO TID, #30 CAP Prov: LITZY TAN DO 11/23/18 LITZY TAN DO Nov 23, 2018 09:13
[2018-11-23] MEDS ORDERED: methylPREDNISolone SOD SUCC PF 125 MG/2 ML VIAL. IV ONE (09:15)
[2018-11-23] MEDS ORDERED: ACETAMINOPHEN 500 MG TABLET PO ONE (09:15)
[2018-11-23] MEDS ORDERED: AMPICILLIN/SULBACTAM 3 GM in IV NORMAL SALINE 100ML 100 ML IV ONE (09:15)
[2018-11-23] MEDS ORDERED: IV NORMAL SALINE 1000ML BAG 1,000 ML IV ONE (09:15)
[2018-11-23 09:30] LABS: BILIRUBIN,URINE SMALL (NEG); CLARITY,URINE CLEAR; NITRITE,URINE NEGATIVE (NEG); PROTEIN,URINE 30 mg/dL (NEG-TRACE)
[2018-11-23] MEDS ORDERED: KETOROLAC 30 MG/ML VIAL. IV ONE (09:30)
[2018-11-23 09:32] LABS: COLOR,URINE YELLOW
[2018-11-23 09:34] LABS: BACTERIA,URINE MANY /HPF (0-FEW); SQUAMOUS EPITHELIAL CELL,UR MANY /LPF
[2018-11-23 09:35] LABS: RBC,URINE OCC /HPF (0-2)
[2018-11-23 09:41] LABS: BASO % 0 % (0-3); EOS % 0 % (0-3); HEMATOCRIT 38.1 % (36.0-47.0); HEMOGLOBIN 13.2 g/dL (12.0-15.5); LYMPH # 0.8 x10^3/uL (1.0-4.8); LYMPH % 15 % (24-48); MEAN CORPUSCULAR HEMOGLOBIN 33 pg (25-35); MEAN CORPUSCULAR HGB CONC 35 g/dL (31-37); MEAN CORPUSCULAR VOLUME 96 fL (79-100); MONO # 0.4 x10^3/uL (0.0-1.1); MONO % 8 % (0-9); NEUT # 4.3 x10^3uL (1.8-7.7); NEUT % 77 % (31-73); PLATELET COUNT 177 x10^3/uL (140-400); RED BLOOD COUNT 3.98 x10^6/uL (3.50-5.40); RED CELL DISTRIBUTION WIDTH 11.9 % (11.5-14.5); WHITE BLOOD COUNT 5.6 x10^3/uL (4.0-11.0)
[2018-11-23 09:55] LABS: CALCIUM 8.8 mg/dL (8.5-10.1); CREATININE 0.7 mg/dL (0.6-1.0); GFR 102.8; POTASSIUM 3.7 mmol/L (3.5-5.1)
[2018-11-23 10:02] LABS: ALBUMIN 3.7 g/dL (3.4-5.0); ALBUMIN/GLOBULIN RATIO 0.9 (1.0-1.7); TOTAL BILIRUBIN 0.3 mg/dL (0.2-1.0); TOTAL PROTEIN 7.9 g/dL (6.4-8.2)
[2018-11-23 10:06] VITALS: BP 107/58
[2018-11-23] MEDS ORDERED: AMOX500C PO (10:10)
--- NOTE | 2018-11-23 12:48 | EKG ---
[facility] [address] [place] [address] Test Date: 2018-11-23 Test Time: 09:11:14 Pat Name: ANY MONROY Department: Room: Gender: F [employer]: : 1995 Requested By: LITZY TAN Order Number: [id number] Reading MD: Measurements Intervals [place] Rate: 95 P: 46 MT: 106 QRS: 34 QRSD: 86 T: 52 QT: 338 QTc: 427 Interpretive Statements SINUS RHYTHM QRS(T) CONTOUR ABNORMALITY CANNOT RULE OUT INFERIOR MYOCARDIAL DAMAGE BORDERLINE ECG No previous ECG available for comparison
== END 2018-11-23 10:25 | disposition home or self-care (01) ==
LOC: ER 08:57
DX: J02.9 Acute pharyngitis, unspecified (principal); R50.9 Fever, unspecified; R42 Dizziness and giddiness
CPT/HCPCS: 36415; 80053; 81001; 81025; 85025; 87070; 87086; 87880; 93005; 96365; 96375; 99284; J0295; J1885; J2930; J7030

== ENCOUNTER → 2019-02-15 | Outpatient (CLI) | payer OTHER ==
[~2019-02-15] MED LIST changes: +AMOX500C PO; +DEXT20CA7 PO; +OXYC1TAB15 PO
--- NOTE | 2019-02-15 08:32 | RAD ---
Pelvic ultrasound, 02/15/2019: HISTORY: Pelvic pain, dyspnea and arrhythmia, postcoital bleeding Transabdominal and transvaginal scans were obtained. The uterus is retroverted. It measures 8.1 x 5.2 x 3.2 cm. This central uterine echo complex is within normal limits measuring 5 mm in AP diameter. The right ovary measures 3.8 x 2.7 x 2.1 cm while the left ovary measures 3.5 x 2.6 x 1.8 cm. There are multiple small follicular cysts in both ovaries. The largest of these lies on the left and measures 1.8 cm. There is blood flow in both ovaries. No adnexal mass is seen. There is a trace amount of free fluid in the pelvis. This amount of fluid can be physiologic. IMPRESSION: No significant abnormality is detected. Electronically signed by: Som Canada MD (02/15/2019 8:29 AM) [facility]
== END | disposition home or self-care (01) ==
LOC: US 07:05
PROVIDERS: ATTEND Obstetrics & Gynecology
DX: N85.4 Malposition of uterus (principal); N83.02 Follicular cyst of left ovary; N83.01 Follicular cyst of right ovary
CPT/HCPCS: 76830; 76856

== ENCOUNTER 2019-02-28 06:23 | Day surgery (SDC) | payer OTHER ==
[~2019-02-28] VITALS: Ht 160 cm; Wt 72.6 kg
[~2019-02-28 06:23] MED LIST changes: +BUPIVACAINE-EPI 0.25%-1:200000 MPF 30 ML VIAL. ONE; -OXYC1TAB15 PO; +SURGICEL HEMOSTAT 4X8 EACH. ONE
[2019-02-28] MEDS ORDERED: MORPHINE SULFATE 2 MG/ML VIAL. IV PRN (07:00)
[2019-02-28] MEDS ORDERED: ONDANSETRON PF 4 MG/2 ML VIAL. IV PRN (07:00)
[2019-02-28] MEDS ORDERED: HYDROmorphone 2 MG/ML VIAL IV PRN (07:00)
[2019-02-28] MEDS ORDERED: IV RINGERS,LACTATED 1000ML 1,000 ML IV SCH (07:00)
[2019-02-28] MEDS ORDERED: fentaNYL PF VIAL 100 MCG/2 ML VIAL IV PRN (07:00)
[2019-02-28] MEDS ORDERED: PROCHLORPERAZINE 10 MG/2 ML VIAL. IV PRN (07:00)
[2019-02-28 07:27] LABS: U PREG PATIENT NEGATIVE (NEG)
[2019-02-28] MEDS ORDERED: SUCCINYLCHOLINE 200 MG/10 ML VIAL. ONE (07:41)
[2019-02-28] MEDS ORDERED: PROPOFOL 20 ML IV ONE (07:41)
[2019-02-28] MEDS ORDERED: LIDOCAINE 2% PF 5 ML VIAL. ONE (07:41)
[2019-02-28] MEDS ORDERED: ROCURONIUM 50 MG/5 ML VIAL. ONE (07:41)
[2019-02-28] MEDS ORDERED: fentaNYL PF VIAL 100 MCG/2 ML VIAL ONE ×2 (07:41→09:24)
[2019-02-28] MEDS ORDERED: DESFLURANE 31 TO 60 MINUTES IH ONE (08:10)
[2019-02-28] MEDS ORDERED: DEXAMETHASONE SOD PHOS 20 MG/5 ML VIAL. ONE (08:10)
[2019-02-28] MEDS ORDERED: ONDANSETRON PF 4 MG/2 ML VIAL. ONE (08:33)
[2019-02-28] MEDS ORDERED: GLYCOPYRROLATE 1 MG/5 ML VIAL. ONE (08:34)
[2019-02-28] MEDS ORDERED: NEOSTIGMINE METHYLSULFATE 5 MG/5 ML SYRINGE. ONE (08:34)
[2019-02-28] MEDS ORDERED: FAMOTIDINE 20 MG/2 ML VIAL ONE (08:47)
[2019-02-28] MEDS ORDERED: ceFAZolin 2GM PREMIX 2 GM/50 ML BAG IV ONE (09:00)
--- NOTE | 2019-02-28 09:13 | PDOC ---
BRIEF OPERATIVE NOTE Date: Feb 28, 2019 Pre-Op Diagnosis 1. Dyspareunia 2. CPP 3. Post coital bleeding Post-Op Diagnosis SAme + endometrial polyp Procedure Performed 1. Op HSC 2. Dx [facility] Surgeon Dr. Miles Anesthesia Type: General Blood Loss 10 ml Specimens Obtained endometrial biopsy Findings endometrial polyp; nml size uterus, nml fallopian tubes and ovaries nimco.; no evidence of endometriosis Complications none Operative Note see dictation PAMELA MILES Jr, MD Feb 28, 2019 09:13
[2019-02-28] MEDS: fentaNYL PF VIAL 100 MCG/2 ML VIAL IV PRN ×3 (09:15→09:30)
--- NOTE | 2019-02-28 09:15 | DISCH ---
DISCHARGE INSTRUCTIONS Condition on Discharge Condition on Discharge: Stable Activity After Discharge Activity Instructions for Disc: Activity as tolerated, Other, see below Lifting Instructions after Dis: No heavy lifting, No pulling or pushing Driving Instructions after Dis: Do not drive today, Other, see below Weight Bearing Status after Di: No restrictions Diet after Discharge Diet after Discharge: Regular Contacting the after DC Call your doctor for: Concerns you may have Follow-Up Follow up with: Dr. Miles in 1 week. PAMELA MILES Jr, MD Feb 28, 2019 09:15
[2019-02-28] MEDS ORDERED: OXYC1TAB15 PO (09:40)
[2019-02-28] MEDS ORDERED: oxyCODONE/APAP 5/325 1 TAB TABLET PO ONE (10:15)
[2019-02-28 10:50] VITALS: BP 109/68
--- NOTE | 2019-02-28 11:12 | OP ---
DATE OF SURGERY: PREOPERATIVE DIAGNOSES: 1. Dyspareunia. 2. Chronic pelvic pain. 3. Postcoital bleeding. POSTOPERATIVE DIAGNOSES: 1. Dyspareunia. 2. Chronic pelvic pain. 3. Postcoital bleeding. 4. Endometrial polyp. PROCEDURES: 1. Operative hysteroscopy. 2. Diagnostic laparoscopy. SURGEON: Sergio Ahumada M.D. ANESTHESIA: GETA. ESTIMATED BLOOD LOSS: 10 mL. COMPLICATIONS: None. FINDINGS: Endometrial polyp, normal-sized uterus and normal fallopian tubes and ovaries bilaterally. No evidence of endometriosis. SUMMARY: This is a 23-year-old female who was counseled on risks, benefits and expectations of operative hysteroscopy and laparoscopic surgery for possible resection of endometriosis and voiced clear understanding. DESCRIPTION OF PROCEDURE: The patient was taken to the surgery suite and placed in dorsal lithotomy position. She was prepped with Betadine solution for vaginal prep and ChloraPrep for abdominal prep. After adequate anesthesia, weighted speculum and curved Zaidi were placed vaginally. The anterior lip of the cervix was grasped with single tooth tenaculum. The cervix then dilated with Hegar dilators up to a size 7. The TruClear hysteroscope was then placed. There was an endometrial polyp that was visualized. The fallopian tube ostia appeared normal bilaterally. Using the TruClear device, the endometrial polyp was resected. The cavity was then more homogenous. The hysteroscope was then removed. The Uterine [place] manipulator was then placed and the weighted speculum was removed. Attention was now placed on the abdomen. A small transverse skin incision was made with a scalpel just below the umbilicus. The Veress needle was then placed through the infraumbilical incision site. The abdomen was allowed to insufflate up to 1-1/2 liters CO2 gas. The Veress needle was then removed. A 5-mm trocar was placed. The scope was positioned. The endometrial cavity was visualized. A second incision was made in the left lower quadrant, in which a 5-mm trocar was placed. There was no evidence of endometriosis. Gallbladder and appendix appeared normal as well. Suction irrigation was performed to irrigate the cul-de-sac. There was a small amount of normal saline left in the posterior cul-de-sac. The ovaries appeared normal. Fallopian tubes appeared normal bilaterally. The scope was then removed. The abdomen was allowed to deflate as much as possible. The trocars were also removed. The two skin incisions were reapproximated using 4-0 Vicryl suture in subcuticular manner. A 0.25% Marcaine with epinephrine was injected at each incision site. The patient tolerated the procedure well and was taken to recovery room in stable condition. Sponge and needle count correct x 3. SERGIO AHUMADA MD DR: LOUANN/saad JOB#: [id number] / [id number]
--- NOTE | 2019-03-04 10:06 | PATHOLOGY ---
[facility] Accession Number: [id number] . 01 Material submitted: . endometrium - ENDOMETRIAL POLYP AND CURETTINGS . 01 Clinical history: . None provided . 02 Diagnosis: Endometrial curettings: - Late secretory endometrium. - Endometrial polyp. (JPM:inspector and tester; 03/01/2019) MBR/03/01/2019 . 02 Comment: There is no atypia or evidence of malignancy. (JPM:inspector and tester; 03/01/2019) . 02 Electronically signed: . Cornell Nava MD, Pathologist NPI- [id number] . 01 Gross description: . Received in formalin labeled "Radha, Margaret, endometrial polyp and curettings," are multiple segments of larry soft tissue measuring 2.5 x 1.0 x 0.3 cm in aggregate dimensions. The specimen is filtered and entirely submitted in cassette A1. (TSD; 02/28/2019) TOB/TOB . 02 Pathologist provided ICD-10: N84.0 . 02 CPT . 266397 Specimen Comment: A courtesy copy of this report has been sent to Specimen Comment: [phone], . Specimen Comment: Report sent to / DR SUTHERLAND Performed at: 01 [facility] [address], [place], [place] [id number] MD Rajat Pelaez MD Phone: [phone] Performed at: [address] [facility] [address] [place], [place] [id number] MD Cornell Nava MD Phone: [phone]
== END 2019-02-28 10:50 | disposition home or self-care (01) ==
LOC: SURG 06:23
PROVIDERS: ATTEND Obstetrics & Gynecology
DX: N84.0 Polyp of corpus uteri (principal); N93.0 Postcoital and contact bleeding; N94.10 Unspecified dyspareunia; F90.9 Attention-deficit hyperactivity disorder, unspecified type; K08.409 Partial loss of teeth, unspecified cause, unspecified class; Z79.899 Other long term (current) drug therapy; Z82.49 Family history of ischemic heart disease and other diseases of the circulatory system; Z83.3 Family history of diabetes mellitus; Z82.3 Family history of stroke; Z84.1 Family history of disorders of kidney and ureter
CPT/HCPCS: 49320; 58558; 81025; 88305; A7015; J0330; J0696; J0780; J1100; J2001; J2405; J2704; J2710; J3010; J3490; J7030

== ENCOUNTER 2021-07-16 15:07 | Emergency (ER) | payer MEDICAID, OTHER ==
[~2021-07-16] VITALS: Ht 160 cm; Wt 65.9 kg
[~2021-07-16 15:07] MED LIST changes: -BUPIVACAINE-EPI 0.25%-1:200000 MPF 30 ML VIAL. ONE; +OXYC1TAB15 PO; -SURGICEL HEMOSTAT 4X8 EACH. ONE
[2021-07-16 15:52] LABS: BASO % 0 % (0-3); EOS # 0.3 x10^3/uL (0.0-0.7); EOS % 10 % (0-3); HEMATOCRIT 32.9 % (36.0-47.0); HEMOGLOBIN 11.4 g/dL (12.0-15.5); LYMPH # 0.7 x10^3/uL (1.0-4.8); LYMPH % 21 % (24-48); MEAN CORPUSCULAR HEMOGLOBIN 31 pg (25-35); MEAN CORPUSCULAR HGB CONC 35 g/dL (31-37); MEAN CORPUSCULAR VOLUME 90 fL (79-100); MONO # 0.6 x10^3/uL (0.0-1.1); MONO % 19 % (0-9); NEUT # 1.6 x10^3/uL (1.8-7.7); NEUT % 50 % (31-73); PLATELET COUNT 241 x10^3/uL (140-400); RED BLOOD COUNT 3.65 x10^6/uL (3.50-5.40); RED CELL DISTRIBUTION WIDTH 13.8 % (11.5-14.5); WHITE BLOOD COUNT 3.1 x10^3/uL (4.0-11.0)
[2021-07-16 15:54] LABS: BILIRUBIN,URINE NEGATIVE (NEG); CLARITY,URINE CLEAR; COLOR,URINE YELLOW; NITRITE,URINE NEGATIVE (NEG); PROTEIN,URINE NEGATIVE (NEG-TRACE)
[2021-07-16 16:07] LABS: CALCIUM 8.1 mg/dL (8.5-10.1); CREATININE 0.6 mg/dL (0.6-1.0); GFR 119.9; POTASSIUM 3.4 mmol/L (3.5-5.1)
[2021-07-16 16:13] LABS: ALBUMIN 2.9 g/dL (3.4-5.0); ALBUMIN/GLOBULIN RATIO 0.8 (1.0-1.7); TOTAL BILIRUBIN 0.4 mg/dL (0.2-1.0); TOTAL PROTEIN 6.5 g/dL (6.4-8.2)
[2021-07-16 16:13] LABS: BACTERIA,URINE 0 /HPF (0-FEW); RBC,URINE 0 /HPF (0-2); WBC,URINE OCC /HPF (0-4)
[2021-07-16 16:18] VITALS: BP 113/59
[2021-07-16 16:22] LABS: % ATYL 1 % (0-0); % BANDS 8 % (0-9); % BASOS 1 % (0-3); % EOS 9 % (0-5); % LYMPHS 18 % (24-48); % MONOS 17 % (0-10); % SEGS 46 % (35-66); PLT ESTIMATE ADEQUATE (ADEQUATE)
--- NOTE | 2021-07-16 16:46 | PHYS DOC ---
Past Medical History Past Medical History: No Pertinent History Past Surgical History: No Surgical History Additional Past Surgical Histo: wisdom teeth Smoking Status: Never Smoker Alcohol Use: None Drug Use: None General Adult EDM: Chief Complaint: ABNORMAL LABS HPI: HPI: Patient is a 26-year-old female who presents to the emergency department reporting her physician friend told her to come to the emergency department for evaluation of abnormal labs that were drawn on 12 July 2021. Patient was seen at [facility] emergency department for abdominal pain, was noted to have elevated liver enzymes without hyperbilirubinemia, it was recommended she follow-up with her primary care physician Dr. Red who has since secured a follow-up with a liver specialist for ongoing evaluation of her elevated liver enzymes. Patient states she was speaking to a physician friend of hers who recommended she come straight to the emergency department here at [facility] for redraw of her labs. Patient ports no changes in her symptoms, denies any other physical complaints or physical concerns. Review of Systems: Review of Systems: 14 body systems of review of systems have been reviewed. See HPI for pertinent positives and negative responses, otherwise all other systems are negative, nonpertinent or noncontributory. Constitutional: Negative except as outlined in HPI above. Skin: Negative except as outlined in HPI above. Eyes: Negative except as outlined in HPI above. HENT: Negative except as outlined in HPI above. Respiratory: Negative except as outlined in HPI above. Cardiovascular: Negative except as outlined in HPI above. GI: Negative except as outlined in HPI above. : Negative except as outlined in HPI above. Musculoskeletal: Negative except as outlined in HPI above. Integument: Negative except as outlined in HPI above. Neurologic: Negative except as outlined in HPI above. Endocrine: Negative except as outlined in HPI above. Lymphatic: Negative except as outlined in HPI above. Psychiatric: Negative except as outlined in HPI above. Heart Score: C/O Chest Pain: No Risk Factors: Risk Factors: DM, Current or recent (<one month) smoker, HTN, HLP, family history of CAD, obesity. Risk Scores: Score 0 - 3: 2.5% MACE over next 6 weeks - Discharge Home Score 4 - 6: 20.3% MACE over next 6 weeks - Admit for Clinical Observation Score 7 - 10: 72.7% MACE over next 6 weeks - Early Invasive Strategies Allergies: Allergies: Allergies Coded Allergies Type Severity Reaction Last Updated Verified No Known Drug Allergies 02/27/19 No Physical Exam: PE: Constitutional: Well developed, well nourished, no acute distress, non-toxic appearance. 26-year-old female in no apparent distress. HENT: Normocephalic, atraumatic. Eyes: Conjunctiva normal, no discharge. Neck: Normal range of motion, no stridor. Cardiovascular: No cyanosis appreciated, distal cap refill less than 2 seconds. Lungs & Thorax: Patient is in no respiratory distress, no audible adventitious lung sounds appreciated. Abdomen: Nontender, no abnormalities noted. Skin: Warm, dry, no erythema, no rash. Back: No tenderness, no deformities. Extremities: No tenderness, no cyanosis, no clubbing, ROM intact, no edema. Neurologic: Alert and oriented X 3, normal motor function, normal sensory function, no focal deficits noted. Psychologic: Affect normal, judgement normal, mood normal. Current Patient Data: Labs: Laboratory Tests Test 07/16/21 15:10 07/16/21 15:40 07/16/21 15:47 Urine Collection Type Unknown Urine Color Yellow Urine Clarity Clear Urine pH 7.0 Urine Specific [place] 1.015 Urine Protein Negative mg/dL Urine Glucose (UA) Negative mg/dL Urine Ketones (Stick) Negative mg/dL Urine Blood Negative Urine Nitrite Negative Urine Bilirubin Negative Urine Urobilinogen Dipstick 1.0 mg/dL Urine Leukocyte Esterase Negative Urine RBC 0 /HPF Urine WBC Occ /HPF Urine Squamous Epithelial Cells Few /LPF Urine Bacteria 0 /HPF Urine Mucus Mod /LPF White Blood Count 3.1 x10^3/uL Red Blood Count 3.65 x10^6/uL Hemoglobin 11.4 g/dL Hematocrit 32.9 % Mean Corpuscular Volume 90 fL Mean Corpuscular Hemoglobin 31 pg Mean Corpuscular Hemoglobin Concent 35 g/dL Red Cell Distribution Width 13.8 % Platelet Count 241 x10^3/uL Neutrophils (%) (Auto) 50 % Lymphocytes (%) (Auto) 21 % Monocytes (%) (Auto) 19 % Eosinophils (%) (Auto) 10 % Basophils (%) (Auto) 0 % Neutrophils # (Auto) 1.6 x10^3/uL Lymphocytes # (Auto) 0.7 x10^3/uL Monocytes # (Auto) 0.6 x10^3/uL Eosinophils # (Auto) 0.3 x10^3/uL Basophils # (Auto) 0.0 x10^3/uL Segmented Neutrophils % 46 % Band Neutrophils % 8 % Lymphocytes % 18 % Atypical Lymphocytes % (Manual) 1 % Monocytes % 17 % Eosinophils % 9 % Basophils % 1 % Platelet Estimate Adequate Sodium Level 141 mmol/L Potassium Level 3.4 mmol/L Chloride Level 103 mmol/L Carbon Dioxide Level 32 mmol/L Anion Gap 6 Blood Urea Nitrogen 10 mg/dL Creatinine 0.6 mg/dL Estimated GFR (Cockcroft-Gault) 119.9 BUN/Creatinine Ratio 17 Glucose Level 114 mg/dL Calcium Level 8.1 mg/dL Total Bilirubin 0.4 mg/dL Aspartate Amino Transf (AST/SGOT) 65 U/L Alanine Aminotransferase (ALT/SGPT) 227 U/L Alkaline Phosphatase 147 U/L Total Protein 6.5 g/dL Albumin 2.9 g/dL Albumin/Globulin Ratio 0.8 Lipase 164 U/L Bedside Urine HCG, Qualitative Hcg negative Laboratory Tests Test 07/16/21 15:10 07/16/21 15:40 07/16/21 15:47 Urine Collection Type Unknown Urine Color Yellow Urine Clarity Clear Urine pH 7.0 (<5.0-8.0) Urine Specific [place] 1.015 (1.000-1.030) Urine Protein Negative mg/dL (NEG-TRACE) Urine Glucose (UA) Negative mg/dL (NEG) Urine Ketones (Stick) Negative mg/dL (NEG) Urine Blood Negative (NEG) Urine Nitrite Negative (NEG) Urine Bilirubin Negative (NEG) Urine Urobilinogen Dipstick 1.0 mg/dL (0.2 mg/dL) Urine Leukocyte Esterase Negative (NEG) Urine RBC 0 /HPF (0-2) Urine WBC Occ /HPF (0-4) Urine Squamous Epithelial Cells Few /LPF Urine Bacteria 0 /HPF (0-FEW) Urine Mucus Mod /LPF White Blood Count 3.1 x10^3/uL (4.0-11.0) L Red Blood Count 3.65 x10^6/uL (3.50-5.40) Hemoglobin 11.4 g/dL (12.0-15.5) L Hematocrit 32.9 % (36.0-47.0) L Mean Corpuscular Volume 90 fL (79-100) Mean Corpuscular Hemoglobin 31 pg (25-35) Mean Corpuscular Hemoglobin Concent 35 g/dL (31-37) Red Cell Distribution Width 13.8 % (11.5-14.5) Platelet Count 241 x10^3/uL (140-400) Neutrophils (%) (Auto) 50 % (31-73) Lymphocytes (%) (Auto) 21 % (24-48) L Monocytes (%) (Auto) 19 % (0-9) H Eosinophils (%) (Auto) 10 % (0-3) H Basophils (%) (Auto) 0 % (0-3) Neutrophils # (Auto) 1.6 x10^3/uL (1.8-7.7) L Lymphocytes # (Auto) 0.7 x10^3/uL (1.0-4.8) L Monocytes # (Auto) 0.6 x10^3/uL (0.0-1.1) Eosinophils # (Auto) 0.3 x10^3/uL (0.0-0.7) Basophils # (Auto) 0.0 x10^3/uL (0.0-0.2) Segmented Neutrophils % 46 % (35-66) Band Neutrophils % 8 % (0-9) Lymphocytes % 18 % (24-48) L Atypical Lymphocytes % (Manual) 1 % (0-0) H Monocytes % 17 % (0-10) H Eosinophils % 9 % (0-5) H Basophils % 1 % (0-3) Platelet Estimate Adequate (ADEQUATE) Sodium Level 141 mmol/L (136-145) Potassium Level 3.4 mmol/L (3.5-5.1) L Chloride Level 103 mmol/L (98-107) Carbon Dioxide Level 32 mmol/L (21-32) Anion Gap 6 (6-14) Blood Urea Nitrogen 10 mg/dL (7-20) Creatinine 0.6 mg/dL (0.6-1.0) Estimated GFR (Cockcroft-Gault) 119.9 BUN/Creatinine Ratio 17 (6-20) Glucose Level 114 mg/dL (70-99) H Calcium Level 8.1 mg/dL (8.5-10.1) L Total Bilirubin 0.4 mg/dL (0.2-1.0) Aspartate Amino Transferase (AST) 65 U/L (15-37) H Alanine Aminotransferase (ALT) 227 U/L (14-59) H Alkaline Phosphatase 147 U/L (46-116) H Total Protein 6.5 g/dL (6.4-8.2) Albumin 2.9 g/dL (3.4-5.0) L Albumin/Globulin Ratio 0.8 (1.0-1.7) L Lipase 164 U/L (73-393) POC Urine HCG, Qualitative Hcg negative (Negative) Laboratory Tests 07/16/21 15:40 Laboratory Tests 07/16/21 15:40 Vital Signs: Vital Signs Date Time Temp Pulse Resp B/P (MAP) Pulse Ox O2 Delivery O2 Flow Rate FiO2 07/16/21 15:14 98.5 102 16 125/66 (82) 99 Room Air 98.5 EKG: EKG: [] Radiology/Procedures: Radiology/Procedures: [] Course & Med Decision Making: Course & Med Decision Making Pertinent Labs and Imaging studies reviewed. (See chart for details) 26-year-old female, vital signs reviewed, presents emergency department for redraw of liver enzymes labs. Physical examination unremarkable. Will redraw requested labs. Liver enzymes remain slightly elevated, with marked improvement from same labs drawn on 07/12/2021, called and discussed patient case and ED work-up with inpatient management physician Dr. Canseco who stated he was aware of this patient and was given report by inpatient management physician Dr. Li, Dr. Canseco recommended with patient's marked improvement to discharge patient to home with follow-up with liver specialist as patient has planned. Discussed findings and Dr. Canseco recommendations with patient, patient is amenable to this plan, patient reports she has a close follow-up with her primary care physician Dr. Red prior to her appointment with the liver specialist. Patient states she is relieved to find her labs have improved and is ready to go home. Patient remains hemodynamically stable, nontoxic in appearance, and in no apparent distress at disposition time. Discussed with the patient all findings and diagnostic testing as well as the need to follow-up with their primary care provider for further evaluation and treatment or return to the ED if any new or worsening symptoms. Strict return precautions were also discussed at length, the patient voiced understanding and agreement with the discharge planning. The patient was nontoxic in appearance, in no apparent distress, and hemodynamically stable at the time of disposition. Dragon Disclaimer: Dragon Disclaimer: This electronic medical record was generated, in whole or in part, using a voice recognition dictation system. Departure Departure Impression: Primary Impression: Elevated liver enzymes Disposition: HOME / SELF CARE / HOMELESS Condition: GOOD Referrals: MAURIZIO SUTHERLAND MD (PCP) Additional Instructions: You were seen today in the emergency department regarding abnormal liver enzyme labs were drawn on the of this month. A redraw these labs showing marked improvement. After reviewing your labs with physicians Dr. Li and Dr. Canseco, it is recommended you continue your follow-up with your primary care physician Dr. Lyons and with the liver specialist. Please return to the emergency department for worsening symptoms or other concerns. Thank you for visiting our Emergency Department. It was a pleasure taking care of you today in the emergency department and we appreciate you trusting us with your care. If any additional problems come up don't hesitate to return to visit us. Please follow up with your primary care provider so they can plan additional care if ne eded and know about the problem that you had. If symptoms worsen come back to the Emergency Department. Any concerning symptoms that start such as chest pain, shortness of air, weakness or numbness on one side of the body, running high fevers or any other concerning symptoms return to the ER. CHUCK ALSTON APRN Jul 16, 2021 16:46
== END 2021-07-16 16:54 | disposition home or self-care (01) ==
LOC: ER 15:07
DX: R74.8 Abnormal levels of other serum enzymes (principal)
CPT/HCPCS: 36415; 80053; 81001; 81025; 83690; 85007; 85025; 99283

== ENCOUNTER → 2021-09-17 | Outpatient (CLI) | payer MEDICAID ==
[~2021-09-17] MED LIST changes: +ARIP2TAB3 PO
--- NOTE | 2021-09-17 13:35 | RAD ---
EXAM: Bilateral axillary sonogram. HISTORY: Axillary lymphadenopathy on CT. TECHNIQUE: Sonographic imaging of the axillary regions was performed. COMPARISON: CT dated 09/14/2021. FINDINGS: There are multiple enlarged bilateral axillary lymph nodes. These are fairly symmetric in s ize. The largest lymph node is seen on the left measuring 2.8 cm in long axis with a cortex measuring 7.5 mm. These lymph nodes maintain reniform configuration and fatty cynthia. IMPRESSION: Bilateral axillary lymphadenopathy. The largest lymph node measures 2.8 cm on the left. I n the absence of etiologies to suggest reactive lymphadenopathy, the possibility of an underlying yun plastic etiology such as lymphoma is not excluded. Sonographic guided tissue sampling can be performe d for definitive diagnosis if clinically indicated. Electronically signed by: Huong Quezada MD (09/17/2021 1:33 PM) [id number]
== END ==
LOC: MAMMO 12:10
PROVIDERS: ATTEND Nurse Practitioner Adult Health
DX: R59.0 Localized enlarged lymph nodes (principal)
CPT/HCPCS: 76881

== ENCOUNTER 2021-09-22 07:11 | Outpatient (CLI) | payer MEDICAID ==
[2021-09-22] VITALS (17 sets, daily range): BP systolic 101–130; BP diastolic 0–67
[~2021-09-22] VITALS: Ht 160 cm; Wt 66.0 kg
[~2021-09-22 07:11] MED LIST changes: -ARIP2TAB3 PO
[2021-09-22] MEDS ORDERED: ARIP2TAB3 PO (07:51)
[2021-09-22] MEDS ORDERED: LIDOCAINE WITH 8.4% SOD BICARB 3 ML DISP.SYRIN. ONE (08:23)
[2021-09-22] MEDS ORDERED: fentaNYL PF VIAL 100 MCG/2 ML VIAL ONE (08:50)
[2021-09-22] MEDS ORDERED: MIDAZOLAM HCL/PF 2 MG/2 ML VIAL. ONE (08:50)
[2021-09-22] MEDS ORDERED: fentaNYL PF VIAL 100 MCG/2 ML VIAL IV ONE (09:15)
[2021-09-22] MEDS ORDERED: LIDOCAINE WITH 8.4% SOD BICARB 3 ML DISP.SYRIN. IJ ONE (09:15)
[2021-09-22] MEDS ORDERED: MIDAZOLAM HCL/PF 2 MG/2 ML VIAL. IV ONE (09:15)
--- NOTE | 2021-09-22 09:59 | PDOC ---
MODERATE SEDATION ASSESSMENT RISKS/ALTERNATIVES Risks/Alternatives Risks and alternatives of this type of sedation and procedure discussed with: RISK/ALTERNATIVES: Patient H & P ON CHART H & P H & P on chart and reviewed for co-morbid conditions and appropriate labs. H&P ON CHART: Yes STATUS PREG STATUS ASSESSED: Yes MEDS/ALLERGIES REVIEWED Meds/Allergies Reviewed Medications and Allergies including time and route of recently administered narcotics and sedatives. MEDS/ALLERGIES REVIEWED: Yes ASA RATING ASA RATING: II AIRWAY ASSESSMENT Airway Assessment Airway patency, oral function limitations, presence of caps, crowns, dentures, partials, and ability to extend neck assessed. AIRWAY ASSESSMENT: Yes MALLAMPATI SCORE MALLAMPATI SCORE: II PRE-SEDATION ASSESSMENT PRE-SEDATION ASSESSMENT: Yes CARMEN THOMPSON MD Sep 22, 2021 09:59
--- NOTE | 2021-09-22 10:05 | NUR ---
Pt states continues to c/o of feeling lightheadedness after eating and drinking breakfast. NS bolus 250cc started. BERNARDO RN
[2021-09-22] MEDS ORDERED: IV NORMAL SALINE 500ML BAG 250 ML IV ONE (10:15)
--- NOTE | 2021-09-22 11:24 | NUR ---
Discharge Note: ANY [place] Discharge instructions and discharge home medications reviewed with Patient and sister and a copy given. All questions have been answered and understanding verbalized. The following instructions and handouts were given: Incision site care and moderate sedation. Discontinued lines and drains: Left hand IV dc'd, tip intact, and bandage applied. Patient discharged to home with sister via personal vehicle.
--- NOTE | 2021-09-23 11:23 | RAD ---
Procedure: Ultrasound-guided left axillary lymph node biopsy Clinical Indication: Adult female with multiple left axillary lymph nodes. Sedation: Conscious sedation using a combination of Versed and fentanyl was provided for 21 minutes, including continuous monitoring of the patients heart rate, rhythm, blood pressure, oxygen saturation and level of arousability by a trained independent observer. Antibiotics: None Sterility: The procedure was performed in its entirety using appropriate elements of sterile techniqu e. Consent: The procedure was explained in its entirety to the patient or the patients designated repres entative by a member of the treatment team, including a discussion of the risks, benefits and commonl y accepted alternatives to the procedure, as well as the expected consequences of not performing the procedure. Discussion of the risks included, but was not limited to, those that are most frequent an d those that are rare but possibly severe or life-threatening, as well as the possibility of unforese en complications. Time Out: Immediately prior to initiation a procedural pause was conducted in the presence of the mem bers of the treatment team to verify correct patient identity, correct procedure, correct side if zahraa licable, correct patient position, availability of specialized equipment, review of patients allergie s, and assessment of current level of consciousness and arousability. Technique and Findings: Following informed consent, the patient was prepped and draped in usual steri le fashion. Ultrasound interrogation of the left axilla revealed numerous morphologically normal lymp h nodes, though some exceed size criteria for definite benignity. Nevertheless, no morphologically ab normal lymph nodes were identified in the one of the smaller lymph nodes has a diminutive fatty hilum . 1 percent lidocaine was used to achieve local anesthesia. A 17-gauge needle guide was then directed towards the largest lymph node and 3 separate 18-gauge core biopsy specimens were obtained and divid ed between formalin and RPMI. The needle guide was then directed towards a second smaller lymph node, with a less well-defined fatty hilum, and 3 additional core biopsies were obtained and also divided between formalin and RPMI. The needle was removed and hemostasis was achieved with manual compression . Complications: No immediate Impression: 1. Ultrasound-guided left axillary lymph node biopsy as described. Electronically signed by: Hiram Giles MD (09/23/2021 11:21 AM) [id number]
== END 2021-09-22 11:28 | disposition home or self-care (01) ==
LOC: INTRAD 07:11
PROVIDERS: ATTEND Nurse Practitioner Adult Health
DX: R59.0 Localized enlarged lymph nodes (principal); Z79.899 Other long term (current) drug therapy; Z98.890 Other specified postprocedural states; Z88.1 Allergy status to other antibiotic agents; Z88.8 Allergy status to other drugs, medicaments and biological substances
CPT/HCPCS: 38505; 76942; 88184; 88185; 99152; J2250; J3010; J3490; J7040; 88305; 88341; 88342